=== PATIENT | female | born 1990 | race Caucasian/White ===

== ENCOUNTER 2018-03-30 17:15 | Emergency (ER) | payer MEDICAID | END 2018-03-30 18:40 | disposition home or self-care (01) | LOC: FTE 17:15 | DX: S61.214A Laceration without foreign body of right ring finger without damage to nail, initial encounter (principal); W25.XXXA Contact with sharp glass, initial encounter; Y92.9 Unspecified place or not applicable | CPT/HCPCS: 12001; 73130-RT; 99283-25 ==